=== PATIENT | male | born 1950 | race Caucasian/White ===

== ENCOUNTER 2018-07-02 08:45 | Inpatient (IN) | payer OTHER ==
[~2018-07-02] VITALS: Ht 170.2 cm; Wt 71.7 kg
[2018-07-02] MEDS ORDERED: FENOFIBRATE48 MG PO (13:11)
[2018-07-02] MEDS ORDERED: SYNTH PO (13:11)
[2018-07-02] MEDS ORDERED: [UNRECOGNIZED DRUG - OTHER] PO (13:12)
[2018-07-02] MEDS ORDERED: ATORVASTATIN CA20 MG PO (13:12)
[2018-07-02] MEDS ORDERED: CITALOPRAM HBR20 MG PO (13:13)
[2018-07-02] MEDS ORDERED: NITROGLYCERIN0.4 MG SL (13:13)
[2018-07-02] MEDS ORDERED: CLOPIDOGREL BIS75 MG PO (13:14)
[2018-07-02] MEDS ORDERED: LUCENTIS0.3 MG/0.1 PO (13:14)
[2018-07-02] MEDS ORDERED: FIORICET PO (13:15)
[2018-07-02] MEDS ORDERED: ALPHA LIPOIC A300 MG PO (13:15)
[2018-07-02] MEDS ORDERED: MELOTONIN PO (13:16)
[2018-07-12] MEDS ORDERED: MELATONIN3 MG PO (09:49)
[2018-07-12] MEDS ORDERED: BUTALBIT-ACETA1 EACH PO (09:50)
[2018-07-12] MEDS ORDERED: GABAPENTIN300 MG PO (09:52)
[2018-07-12] MEDS ORDERED: LEVOTHYROXINE25 MCG PO (09:56)
[2018-07-12] MEDS ORDERED: RANITIDINE HCL300 MG PO (09:59)
[2018-07-12] MEDS ORDERED: CARTIA XT120 MG PO (10:00)
[2018-07-14] MEDS ORDERED: HYOSCYAMINE0.125 M1 SL (09:36)
[2018-07-14] MEDS ORDERED: OXYC1TAB9 PO (09:37)
== END 2018-07-14 11:03 | disposition home or self-care (01) | DRG 330 ==
LOC: SURH 07-11 07:00 → O/R 07-11 08:46 → SURG 07-11 16:44 → SURH 07-11 17:13
PROVIDERS: ADMIT Surgery
PROC: 07TD4ZZ Resection of Aortic Lymphatic, Percutaneous Endoscopic Approach (ICD-10-PCS; 2018-07-11)
PROC: 0DTJ4ZZ Resection of Appendix, Percutaneous Endoscopic Approach (ICD-10-PCS; 2018-07-11)
PROC: 4A12X4Z Monitoring of Cardiac Electrical Activity, External Approach (ICD-10-PCS; 2018-07-11)
PROC: 4A033R1 Measurement of Arterial Saturation, Peripheral, Percutaneous Approach (ICD-10-PCS; 2018-07-11)
PROC: 3E0F7GC Introduction of Other Therapeutic Substance into Respiratory Tract, Via Natural or Artificial Opening (ICD-10-PCS; 2018-07-11)
PROC: 0DTF4ZZ Resection of Right Large Intestine, Percutaneous Endoscopic Approach (ICD-10-PCS; principal; 2018-07-11 07:00)
DX: C18.2 Malignant neoplasm of ascending colon (principal); J45.22 Mild intermittent asthma with status asthmaticus; K35.890 Other acute appendicitis without perforation or gangrene; R59.0 Localized enlarged lymph nodes; K66.0 Peritoneal adhesions (postprocedural) (postinfection); E03.8 Other specified hypothyroidism; I11.9 Hypertensive heart disease without heart failure; I25.10 Atherosclerotic heart disease of native coronary artery without angina pectoris; G47.33 Obstructive sleep apnea (adult) (pediatric); K63.5 Polyp of colon

== ENCOUNTER 2020-06-25 08:05 | Day surgery (SDC) | payer OTHER ==
[~2020-06-25 08:05] MED LIST: ALPHA LIPOIC A300 MG PO; ATORVASTATIN CA20 MG PO; BUTALBIT-ACETA1 EACH PO; CARTIA XT120 MG PO; CITALOPRAM HBR20 MG PO; CLOPIDOGREL BIS75 MG PO; FENOFIBRATE48 MG PO; FIORICET PO; GABAPENTIN300 MG PO; HYOSCYAMINE0.125 M1 SL; LEVOTHYROXINE25 MCG PO; LUCENTIS0.3 MG/0.1 PO; MELATONIN3 MG PO; MELOTONIN PO; NITROGLYCERIN0.4 MG SL; OXYC1TAB9 PO; RANITIDINE HCL300 MG PO; SYNTH PO; [UNRECOGNIZED DRUG - OTHER] PO
== END 2020-06-25 12:25 | disposition home or self-care (01) ==
LOC: AMB-ENDOS 08:05
PROVIDERS: ATTEND Surgery
DX: D13.1 Benign neoplasm of stomach (principal); K29.80 Duodenitis without bleeding; K44.9 Diaphragmatic hernia without obstruction or gangrene; Z20.822 Contact with and (suspected) exposure to COVID-19